=== PATIENT | female | born 2000 | race African-American/Black ===

== ENCOUNTER 2023-07-17 12:48 | Emergency (ER) | payer SELFPAY ==
[2023-07-17 13:06] VITALS: RESP 16
--- NOTE | 2023-07-17 13:31 | ED ---
General Adult HPI - General Chief complaint: Recheck/Abnormal Lab/Rx Stated complaint: flu symptoms low blood sugar headache Time Seen by Provider: 07/17/23 12:58 Source: patient, police, RN notes reviewed Mode of arrival: ambulatory Limitations: no limitations - History of Present Illness Initial comments: Patient is a 23-year-old female presented ER with a chief complaint of vomiting. Patient also reports that earlier today she was banging her head against the chills and in police car. Patient denies loss of consciousness or blood thinner use. Patient does state she the chills and started having vomiting while getting her fingerprints taken. Patient also is reporting right hand pain which she believes is from the handcuffs and laying on them too long. Patient also states her left foot is having some pain. Patient denies any known injuries. - Related Data Allergies Allergy/AdvReac Type Severity Reaction Status Date / Time No Known Allergies Allergy Verified 07/17/23 12:58 Review of Systems ROS Statement: Those systems with pertinent positive or pertinent negative responses have been documented in the HPI. ROS Other: All systems not noted in ROS Statement are negative. Past Medical History Past Medical History: No Reported History History of Any Multi-Drug Resistant Organisms: None Reported Past Surgical History: No Surgical Hx Reported Past Psychological History: Depression Past Alcohol Use History: None Reported Past Drug Use History: None Reported General Exam Limitations: no limitations General appearance: alert, in no apparent distress Head exam: Present: atraumatic, normocephalic, normal inspection Eye exam: Present: normal appearance, PERRL, EOMI, other (Contusion t righto left eye. minimal swelling. denies visual defects ). Absent: scleral icterus, conjunctival injection, periorbital swelling Pupils: Present: normal accommodation ENT exam: Present: normal exam, mucous membranes moist Neck exam: Present: normal inspection, other (contusions to anterior neck). Absent: tenderness, meningismus, lymphadenopathy Respiratory exam: Present: normal lung sounds bilaterally. Absent: respiratory distress, wheezes, rales, rhonchi, stridor Cardiovascular Exam: Present: regular rate, normal rhythm, normal heart sounds. Absent: systolic murmur, diastolic murmur, rubs, gallop, clicks Extremities exam: Present: other (right 2-3 MCP joint swelling and tenderness. 2+ bilateral radial pulse. full active ROM. Swelling and tenderness to left fourth toe. mild erythema to 4th toe) Back exam: Present: normal inspection Neurological exam: Present: alert, oriented X3, CN II-XII intact Psychiatric exam: Present: normal affect, normal mood Skin exam: Present: warm, dry, intact, normal color. Absent: rash Course Vital Signs 07/17/23 07/17/23 12:54 14:19 Temperature 98.0 F 98.2 F Pulse Rate 76 71 Respiratory 16 16 Rate Blood Pressure 124/88 122/86 O2 Sat by Pulse 100 100 Oximetry Medical Decision Making - Medical Decision Making Was pt. sent in by a medical professional or institution (, PA, BASIC SCIENCES PROFESSOR, urgent care, hospital, or assisted...) When possible be specific @ -Police for head injury evaluation. Did you speak to anyone other than the patient for history (EMS, parent, family, police, friend...)? What history was obtained from this source @ -No Did you review nursing and triage notes (agree or disagree)? Why? @ -I reviewed and agree with nursing and triage notes Were old charts reviewed (outside hosp., previous admission, EMS record, old EKG, old radiological studies, urgent care reports/EKG's, assisted records)? Report findings @ -Police notes sent in with patient. Patient was hitting her head against a wall and in the police car this morning. Differential Diagnosis (chest pain, altered mental status, abdominal pain women, abdominal pain men, vaginal bleeding, weakness, fever, dyspnea, syncope, headache, dizziness, GI bleed, back pain, seizure, CVA, palpatations, mental health, musculoskeletal)? @ -Differential Musculoskeletal Muscular strain, contusion, ligament sprain, fracture, arthritis, septic arthritis, bursitis, cellulitis, muscle spasm, nerve compression, DVT, arterial occlusion, herpes zoster, electrolyte abnormality, tumor.... This is not meant to be in all inclusive list EKG interpreted by me (3pts min.). @ -None X-rays interpreted by me (1pt min.). @ -X-ray of right hand interpreted by me shows no acute fractures or dislocations. Left toe x-ray shows no acute process. CT interpreted by me (1pt min.). @ -CT brain interpreted by me shows no acute intracranial process. U/S interpreted by me (1pt. min.). @ -None done What testing was considered but not performed or refused? (CT, X-rays, U/S, labs)? Why? @ -None What meds were considered but not given or refused? Why? @ -None Did you discuss the management of the patient with other professionals (professionals i.e. , PA, BASIC SCIENCES PROFESSOR, lab, RT, psych nurse, secondary social studies teacher, beater and pulper feeder, teacher, labor relations officer, case filler)? Give summary @ -No Was smoking cessation discussed for >3mins.? @ -No Was critical care preformed (if so, how long)? @ -No Were there social determinants of health that impacted care today? How? (Homelessness, low income, unemployed, alcoholism, drug addiction, transpo rtation, low edu. Level, literacy, decrease access to med. care, long-term, rehab)? @ -No Was there de-escalation of care discussed even if they declined (Discuss DNR or withdrawal of care, Hospice)? DNR status @ -No What co-morbidities impacted this encounter? (DM, HTN, Smoking, COPD, CAD, Cancer, CVA, ARF, Chemo, Hep., AIDS, mental health diagnosis, sleep apnea, morbid obesity)? @ -None Was patient admitted / discharged? Hospital course, mention meds given and route, prescriptions, significant lab abnormalities, going to OR and other pertinent info. @ -Discharged. Patient is a 23 year old female presenting to the ER with a chief complaint of vomiting/ head injury. Review of charts from police indicate patient was hitting her head against a wall earlier this morning. Vitals stable. History and physical exam were completed. No acute neurological findings present. Patient was neurovascularly intact. Edema and ecchymosis present over right 2-3 MCP joints. Mild edema to left 4th toe. Imaging of brain, right hand, and left toe show no acute osseous process. Covid, influenza, RSV negative. Patient received by mouth Tylenol for pain control prior to discharge. Return parameters were discussed. Patient will be discharged in stable condition with follow-up to PCP. Patient expressed understanding and agreement with care plan. Undiagnosed new problem with uncertain prognosis? @ -No Drug Therapy requiring intensive monitoring for toxicity (Heparin, Nitro, Insulin, Cardizem)? @ -No Were any procedures done? @ -No Diagnosis/symptom? @ -Minor head trauma/right hand contusion Acute, or Chronic, or Acute on Chronic? @ -Acute Uncomplicated (without systemic symptoms) or Complicated (systemic symptoms)? @ -Uncomplicated Side effects of treatment? @ -No Exacerbation, Progression, or Severe Exacerbation? @ -No Poses a threat to life or bodily function? How? (Chest pain, [place], [place], pneumonia, PE, COPD, DKA, ARF, appy, cholecystitis, CVA, Diverticulitis, Homicidal, Suicidal, threat to staff... and all critical care pts) @ -No - Lab Data Lab Results 07/17/23 Range/Units 13:11 Influenza Type A (PCR) Not Detected (Not Detectd) Influenza Type B (PCR) Not Detected (Not Detectd) RSV (PCR) Not Detected (Not Detectd) SARS-CoV-2 (PCR) Not Detected (Not Detectd) - Radiology Data Radiology results: report reviewed, image reviewed Disposition Clinical Impression: Head injury Disposition: HOME SELF-CARE Condition: Stable Additional Instructions: Please return to the ER for any new or worsening symptoms. Is patient prescribed a controlled substance at d/c from ED?: No Referrals: None,Stated [Primary Care Provider] - 1-2 days Time of Disposition: 14:06
--- NOTE | 2023-07-17 13:46 | CT ---
EXAMINATION TYPE: CT brain wo con DATE OF EXAM: 07/17/2023 COMPARISON: None INDICATION: Trauma; banging head against the [employer] transport van when brought into custody DLP: 1079.2 mGycm, Automated exposure control for dose reduction was used. CONTRAST: None CT of the brain is performed utilizing 3 mm thick sections through the posterior fossa and 3 mm thick sections through the remaining calvarium. Study is performed within 24 hours of arrival to the hosp ital. No abnormal hyperdensity is present to suggest an acute intracranial hemorrhage. No mass lesion is evident. No acute infarcts are evident. Ventricles and sulci are appropriate for the patient age. No acute fractures are identified. Some mi nimal soft tissue prominence over the left frontal region is present. No underlying fractures are Paranasal sinuses and mastoid air cells within the [id number] are clear. IMPRESSION: 1. Mild soft tissue swelling over the left frontal region. 2. No acute intracranial process.
--- NOTE | 2023-07-17 13:55 | XR ---
EXAMINATION TYPE: XR toes LT DATE OF EXAM: 07/17/2023 COMPARISON: None HISTORY: Pain and swelling mostly in fourth digit TECHNIQUE: 3 view left fourth digit FINDINGS: No acute fractures identified. There is some mild soft tissue swelling at the distal fourth digit. Joint spaces appear preserved. Follow-up studies can be performed 7-10 days from acute trauma for continued pain. IMPRESSION: 1. Soft tissue swelling fourth digit.
--- NOTE | 2023-07-17 13:55 | XR ---
EXAMINATION TYPE: XR hand complete RT DATE OF EXAM: 07/17/2023 COMPARISON: None HISTORY: Pain TECHNIQUE: 3 view right hand FINDINGS: Joint spaces are preserved. No acute fracture or dislocation is evident. Soft tissues appea r normal. Follow up exams can be performed 7-10 days from acute trauma for continued pain. IMPRESSION: 1. No acute osseous abnormality right hand
[2023-07-17] MEDS ORDERED: ACETAMINOPHEN TAB 325 MG TAB PO STA (14:05)
[2023-07-17 14:35] VITALS: BP 122/86; PULSE 71; TEMP 98.2
== END 2023-07-17 15:22 | disposition home or self-care (01) ==
LOC: EC 12:48
DX: S00.11XA Contusion of right eyelid and periocular area, initial encounter (principal); S60.221A Contusion of right hand, initial encounter; R60.0 Localized edema; Z20.822 Contact with and (suspected) exposure to COVID-19; W22.01XA Walked into wall, initial encounter
CPT/HCPCS: 70450; 87636; 99285